=== PATIENT | female | born 1995 | race Caucasian/White ===

== ENCOUNTER 2022-01-26 13:05 | Observation (INO) | payer MEDICAID ==
[~2022-01-26] VITALS: Ht 154.9 cm; Wt 116.1 kg
[2022-01-26 14:08] LABS: BASOPHILS % (AUTO) 0.3 % (0.0-2.0); EOSINOPHILS # (AUTO) 0.1 K/uL (0-0.4); EOSINOPHILS % (AUTO) 0.6 % (0.0-4.0); HEMATOCRIT 37.9 % (36-48); HEMOGLOBIN 12.3 g/dL (12.0-16.0); LYMPHOCYTES # (AUTO) 1.5 K/uL (2.5-16.5); LYMPHOCYTES % (AUTO) 11.8 % (20.5-51.1); MEAN CORPUSCULAR HEMOGLOBIN 26 pg (27-31); MEAN CORPUSCULAR HGB CONC 33 g/dL (33-37); MEAN CORPUSCULAR VOLUME 80.4 fL (80-94); MONOCYTES # (AUTO) 0.7 K/uL (0.8-1.0); MONOCYTES % (AUTO) 5.5 % (1.7-9.3); NEUTROPHILS # (AUTO) 10.1 K/uL (1.8-7.7); NEUTROPHILS % (AUTO) 81.8 % (42.2-75.2); PLATELET COUNT (AUTO) 339 K/uL (140-450); RED BLOOD CELL COUNT(AUTO) 4.71 MIL/uL (4.20-5.40); RED CELL DISTRIBUTION WIDTH 14.1 % (11.6-13.7); WHITE BLOOD COUNT (AUTO) 12.3 K/uL (4.8-10.8)
[2022-01-26] MEDS ORDERED: PNV1TABL5 PO (14:24)
[2022-01-26] MEDS ORDERED: FAMO-90 PO (14:24)
[2022-01-26] MEDS ORDERED: DOXY1TAB6 PO (14:24)
[2022-01-26 14:30] VITALS: BP 115/69
[2022-01-26 14:30] LABS: PROTHROMBIN TIME 9.2 secs (10.8-13.4)
[2022-01-26 14:40] LABS: ALBUMIN 2.5 g/dL (3.4-5.0); ANION GAP 15.6 (8-16); CARBON DIOXIDE 20.8 mmol/L (21-32); CREATININE 0.5 mg/dL (0.6-1.3); POTASSIUM 3.4 mmol/L (3.5-5.1); TOTAL BILIRUBIN 0.3 mg/dL (0.0-1.0)
[2022-01-26] MEDS: LACTATED RINGERS 1,000 ML IV SCH ×2 (15:04→16:56)
[2022-01-26] MEDS ORDERED: METOCLOPRAMIDE 10 MG/2 ML INJ VIAL IVP PRN (17:15)
[2022-01-26] MEDS ORDERED: ACETAMINOPHEN 325 MG TAB PO PRN (17:15)
[2022-01-26] MEDS ORDERED: ONDANSETRON 4 MG/2 ML VIAL IVP PRN (17:15)
[2022-01-26 18:51] LABS: BILIRUBIN,URINE 1+ (NEGATIVE); BLOOD, URINE TRACE-I (NEGATIVE); COLOR,URINE YELLOW (YELLOW); LEUKOCYTE ESTERASE ,URINE 1+ (NEGATIVE); NITRITE, URINE NEGATIVE (NEGATIVE); UGLUCOSE NEGATIVE (NEGATIVE)
[2022-01-26 19:10] LABS: APPEARANCE,URINE HAZY (CLEAR)
[2022-01-26] MEDS ORDERED: NACL 0.9% 1,000 ML IV SCH (19:25)
[2022-01-26] MEDS ORDERED: cefTRIAXone 1,000 MG VIAL ONE (20:03)
[2022-01-26 22:13] LABS: RBC,URINE 0-5 /HPF (0-5)
== END 2022-01-26 22:05 | disposition home or self-care (01) ==
LOC: MLD 13:05
PROVIDERS: ADMIT Obstetrics & Gynecology; ATTEND Obstetrics & Gynecology
DX: O99.612 Diseases of the digestive system complicating pregnancy, second trimester (principal); Z20.822 Contact with and (suspected) exposure to COVID-19; K92.0 Hematemesis; O99.282 Endocrine, nutritional and metabolic diseases complicating pregnancy, second trimester; E03.9 Hypothyroidism, unspecified; O99.342 Other mental disorders complicating pregnancy, second trimester; F41.9 Anxiety disorder, unspecified; Z3A.24 24 weeks gestation of pregnancy
CPT/HCPCS: 36415; 59025; 80053; 81001; 82150; 83690; 85025; 85379; 85384; 85610; 85730; 87086; 87426; 96361; 96365; 96375; G0378; J0696; J2405; J2765; J7060; J7120

== ENCOUNTER 2022-01-28 21:25 | Emergency (ER) | payer MEDICAID ==
[~2022-01-28] VITALS: Ht 154.9 cm; Wt 116.1 kg
[~2022-01-28 21:25] MED LIST: DOXY1TAB6 PO; FAMO-90 PO; PNV1TABL5 PO
[2022-01-28 21:31] VITALS: BP 110/76
--- NOTE | 2022-01-28 22:05 | NUR ---
Blood for labwork drawn from left arm per [employer] hemmer. Patient tolerated well.
--- NOTE | 2022-01-28 22:15 | NUR ---
AMBULATED TO BED #4
[2022-01-28 22:26] LABS: BASOPHILS # (AUTO) 0.1 K/uL (0.00-0.22); BASOPHILS % (AUTO) 0.6 % (0.0-2.0); EOSINOPHILS # (AUTO) 0.1 K/uL (0-0.4); EOSINOPHILS % (AUTO) 0.4 % (0.0-4.0); HEMATOCRIT 36.9 % (36-48); LYMPHOCYTES # (AUTO) 2.2 K/uL (2.5-16.5); LYMPHOCYTES % (AUTO) 14.9 % (20.5-51.1); MEAN CORPUSCULAR HEMOGLOBIN 26 pg (27-31); MEAN CORPUSCULAR HGB CONC 33 g/dL (33-37); MEAN CORPUSCULAR VOLUME 80.7 fL (80-94); MONOCYTES % (AUTO) 6.9 % (1.7-9.3); NEUTROPHILS # (AUTO) 11.4 K/uL (1.8-7.7); NEUTROPHILS % (AUTO) 77.2 % (42.2-75.2); PLATELET COUNT (AUTO) 354 K/uL (140-450); RED BLOOD CELL COUNT(AUTO) 4.57 MIL/uL (4.20-5.40); RED CELL DISTRIBUTION WIDTH 14.1 % (11.6-13.7); WHITE BLOOD COUNT (AUTO) 14.7 K/uL (4.8-10.8)
[2022-01-28 22:51] LABS: ALBUMIN 2.7 g/dL (3.4-5.0); ANION GAP 12.1 (8-16); CARBON DIOXIDE 26.3 mmol/L (21-32); CREATININE 0.5 mg/dL (0.6-1.3); POTASSIUM 3.4 mmol/L (3.5-5.1); TOTAL BILIRUBIN 0.2 mg/dL (0.0-1.0)
--- NOTE | 2022-01-28 23:08 | NUR ---
Assumed patient care, here for bloody vomitus, pt is 25weeks . Ed provider at the bedside, blood work in.
[2022-01-28] MEDS ORDERED: FAMOTIDINE 20 MG/2 ML VIAL IVP ONE (23:55)
[2022-01-28] MEDS ORDERED: NACL 0.9% 1,000 ML IV ONE (23:55)
[2022-01-28] MEDS ORDERED: ONDANSETRON 4 MG/2 ML VIAL IVP ONE (23:55)
[2022-01-29 00:15] LABS: PROTHROMBIN TIME 9.1 secs (10.8-13.4)
--- NOTE | 2022-01-29 00:30 | NUR ---
Given report to Ericka DIXON in L&D, VS stable on transport.
[2022-01-29 00:47] VITALS: BP 110/70
[2022-01-29] MEDS ORDERED: DEXT 5% / LACT RING 1,000 ML IV PRN (01:15)
== END 2022-01-29 01:23 | disposition home or self-care (01) ==
LOC: MED 21:25
DX: O21.8 Other vomiting complicating pregnancy (principal); E03.9 Hypothyroidism, unspecified; Z3A.24 24 weeks gestation of pregnancy; Z90.49 Acquired absence of other specified parts of digestive tract; Z88.5 Allergy status to narcotic agent; Z91.018 Allergy to other foods
CPT/HCPCS: 36415; 80053; 81025; 85025; 85610; 96361; 96374; 96375; 99284; J2405; J3490; J7030; 99283

== ENCOUNTER 2022-01-29 01:08 | Observation (INO) | payer MEDICAID ==
[~2022-01-29 01:08] MED LIST changes: +DEXT 5% / LACT RING 1,000 ML IV PRN
[2022-01-29] MEDS ORDERED: ONDANSETRON 4 MG/2 ML VIAL IVP PRN (01:35)
== END 2022-01-29 10:45 | disposition home or self-care (01) ==
LOC: INTOOBSV 01:08 → MLD 01:08
PROVIDERS: ADMIT Obstetrics & Gynecology; ATTEND Obstetrics & Gynecology
DX: O99.612 Diseases of the digestive system complicating pregnancy, second trimester (principal); K92.0 Hematemesis; Z3A.26 26 weeks gestation of pregnancy
CPT/HCPCS: 81000; 96361; 96374; G0378; G0379; J2405

== ENCOUNTER 2022-02-04 20:55 | Inpatient (IN) | payer MEDICAID ==
[~2022-02-04] VITALS: Ht 154.9 cm; Wt 108.9 kg
[~2022-02-04 20:55] MED LIST changes: -DEXT 5% / LACT RING 1,000 ML IV PRN
[2022-02-04] MEDS ORDERED: ONDANSETRON 8 MG in NACL 0.9% 50 ML IVP PRN (21:50)
[2022-02-04 22:04] LABS: BASOPHILS # (AUTO) 0.1 K/uL (0.00-0.22); BASOPHILS % (AUTO) 0.4 % (0.0-2.0); EOSINOPHILS # (AUTO) 0.1 K/uL (0-0.4); EOSINOPHILS % (AUTO) 0.5 % (0.0-4.0); HEMATOCRIT 34.2 % (36-48); HEMOGLOBIN 11.2 g/dL (12.0-16.0); LYMPHOCYTES % (AUTO) 15.7 % (20.5-51.1); MEAN CORPUSCULAR HEMOGLOBIN 26 pg (27-31); MEAN CORPUSCULAR HGB CONC 33 g/dL (33-37); MEAN CORPUSCULAR VOLUME 80.6 fL (80-94); MONOCYTES # (AUTO) 0.7 K/uL (0.8-1.0); MONOCYTES % (AUTO) 5.4 % (1.7-9.3); NEUTROPHILS # (AUTO) 9.7 K/uL (1.8-7.7); PLATELET COUNT (AUTO) 286 K/uL (140-450); RED BLOOD CELL COUNT(AUTO) 4.25 MIL/uL (4.20-5.40); RED CELL DISTRIBUTION WIDTH 14.6 % (11.6-13.7); WHITE BLOOD COUNT (AUTO) 12.5 K/uL (4.8-10.8)
[2022-02-04 22:05] LABS: APPEARANCE,URINE SL CLOUDY (CLEAR); BILIRUBIN,URINE NEGATIVE (NEGATIVE); BLOOD, URINE 2+ (NEGATIVE); COLOR,URINE YELLOW (YELLOW); LEUKOCYTE ESTERASE ,URINE 1+ (NEGATIVE); NITRITE, URINE NEGATIVE (NEGATIVE); UGLUCOSE NEGATIVE (NEGATIVE)
[2022-02-04] MEDS: LACTATED RINGERS 1,000 ML IV SCH (22:15)
[2022-02-04 22:19] LABS: RBC,URINE 0-5 /HPF (0-5); WBC,URINE 20-60 /HPF (0-5)
[2022-02-04] MEDS ORDERED: ONDANSETRON 4 MG/2 ML VIAL IVP PRN (22:20)
[2022-02-04 22:24] LABS: ALBUMIN 2.5 g/dL (3.4-5.0); ANION GAP 13.3 (8-16); CARBON DIOXIDE 22.4 mmol/L (21-32); CREATININE 0.5 mg/dL (0.6-1.3); POTASSIUM 3.7 mmol/L (3.5-5.1); TOTAL BILIRUBIN 0.1 mg/dL (0.0-1.0)
[2022-02-04] MEDS: cephALEXin 500 MG CAP PO SCH (23:55)
[2022-02-04] MEDS ORDERED: ACETAMINOPHEN 325 MG TAB PO PRN (23:55)
[2022-02-04] MEDS ORDERED: ACETAMINOPHEN 325 MG TAB ONE (23:57)
[2022-02-05] MEDS: LACTATED RINGERS 1,000 ML IV SCH ×3 (00:15→14:32)
[2022-02-05] MEDS ORDERED: CEPHALEXIN SUSP. 250 MG/5 ML PO SCH (09:00)
[2022-02-05] MEDS: METOCLOPRAMIDE 10 MG/2 ML INJ VIAL IVP PRN ×3 (10:02→23:36)
[2022-02-05] MEDS: ONDANSETRON 4 MG/2 ML VIAL IVP PRN ×2 (10:02→16:02)
[2022-02-05] MEDS ORDERED: FAMOTIDINE 20 MG/2 ML VIAL IV SCH (12:20)
[2022-02-05] MEDS ORDERED: FAMOTIDINE 20 MG/2 ML VIAL ONE (12:36)
[2022-02-05] MEDS: cephALEXin 500 MG CAP PO SCH (15:14)
[2022-02-05 16:50] LABS: BARBITURATE, URINE NEGATIVE ng/ml (NEG <=200); BENZODIAZEPINE, URINE NEGATIVE ng/mL (NEG <=200); CANNABINOID, URINE POSITIVE ng/mL (NEG <=50); COCAINE, URINE NEGATIVE ng/mL (NEG <=300); OPIATE, URINE NEGATIVE ng/mL (NEG <=2000); PHENCYCLIDINE SCREEN,URINE NEGATIVE ng/mL (NEG <=25)
[2022-02-06] MEDS: LACTATED RINGERS 1,000 ML IV SCH ×3 (00:15→15:49)
[2022-02-06] MEDS: METOCLOPRAMIDE 10 MG/2 ML INJ VIAL IVP PRN (06:46)
[2022-02-06] MEDS: cephALEXin 500 MG CAP PO SCH ×2 (08:32→17:00)
--- NOTE | 2022-02-06 09:34 | NUR ---
PATIENT HAS BEEN SCREENED AND CATEGORIZED LOW NUTRITION RISK. PATIENT WILL BE SEEN WITHIN 7 DAYS OF ADMISSION. 02/05/22-02/11/[address]
[2022-02-06] MEDS: METOCLOPRAMIDE 10 MG/2 ML INJ VIAL IVP SCH ×2 (12:28→17:56)
[2022-02-06] MEDS: ONDANSETRON 4 MG/2 ML VIAL IVP SCH ×2 (12:29→17:56)
[2022-02-06] MEDS ORDERED: AMITRIPTYLINE 10 MG TAB PO SCH (21:00)
[2022-02-06] MEDS: PANTOPRAZOLE 40 MG INJ VIAL IVP SCH (21:06)
[2022-02-07] MEDS: ONDANSETRON 4 MG/2 ML VIAL IVP SCH ×4 (00:01→18:06)
[2022-02-07] MEDS: METOCLOPRAMIDE 10 MG/2 ML INJ VIAL IVP SCH ×4 (06:01→18:05)
[2022-02-07] MEDS: LACTATED RINGERS 1,000 ML IV SCH (08:13)
[2022-02-07] MEDS: PANTOPRAZOLE 40 MG INJ VIAL IVP SCH (08:53)
[2022-02-07] MEDS: cephALEXin 500 MG CAP PO SCH ×2 (08:53→18:07)
[2022-02-07] MEDS ORDERED: diphenhydrAMINE 50 MG/ML VIAL ONE (12:25)
[2022-02-07] MEDS ORDERED: DIAZEPAM PFS 10 MG/2 ML SYR ONE (12:25)
[2022-02-07] MEDS ORDERED: fentaNYL citrate 0.05 MG/ML VIAL ONE (12:25)
[2022-02-07] MEDS ORDERED: MIDAZOLAM 5 MG/5 ML VIAL ONE (12:26)
[2022-02-07] MEDS ORDERED: fentaNYL citrate 0.05 MG/ML VIAL IVP ONE (14:35)
[2022-02-07] MEDS ORDERED: MIDAZOLAM 2 MG/2 ML VIAL IVP ONE (14:35)
== END 2022-02-07 19:00 | disposition home or self-care (01) | DRG 566 ==
LOC: MFCC 20:55 → OBSVTOIN 02-06 16:52
PROVIDERS: ADMIT Obstetrics & Gynecology; ATTEND Obstetrics & Gynecology
PROC: 0DJ08ZZ Inspection of Upper Intestinal Tract, Via Natural or Artificial Opening Endoscopic (ICD-10-PCS; principal; 2022-02-07 12:30)
DX: O21.2 Late vomiting of pregnancy (principal); K92.0 Hematemesis; O23.42 Unspecified infection of urinary tract in pregnancy, second trimester; O99.322 Drug use complicating pregnancy, second trimester; O99.891 Other specified diseases and conditions complicating pregnancy; O99.282 Endocrine, nutritional and metabolic diseases complicating pregnancy, second trimester; O99.212 Obesity complicating pregnancy, second trimester; E03.9 Hypothyroidism, unspecified; F15.90 Other stimulant use, unspecified, uncomplicated; N39.0 Urinary tract infection, site not specified; Z20.822 Contact with and (suspected) exposure to COVID-19; K59.00 Constipation, unspecified; Z3A.25 25 weeks gestation of pregnancy; Z90.49 Acquired absence of other specified parts of digestive tract; Z88.5 Allergy status to narcotic agent; Z88.8 Allergy status to other drugs, medicaments and biological substances; Z91.018 Allergy to other foods; Z79.899 Other long term (current) drug therapy
CPT/HCPCS: 43235; G0378; 36415; 76705; 80053; 80305; 81001; 82150; 83690; 85025; 87086; C9113; G0480; J1200; J2250; J2405; J2765; J3010; J3360; J3490; J7030; Q0092

== ENCOUNTER 2022-03-24 16:40 | Observation (INO) | payer MEDICAID, OTHER ==
[~2022-03-24] VITALS: Ht 154.9 cm; Wt 113.4 kg
[~2022-03-24 16:40] MED LIST changes: -FAMO-90 PO
[2022-03-24 17:39] VITALS: BP 120/70
[2022-03-24 18:35] LABS: BASOPHILS # (AUTO) 0.1 K/uL (0.00-0.22); BASOPHILS % (AUTO) 0.6 % (0.0-2.0); EOSINOPHILS % (AUTO) 0.4 % (0.0-4.0); HEMATOCRIT 33.3 % (36-48); LYMPHOCYTES # (AUTO) 1.6 K/uL (2.5-16.5); LYMPHOCYTES % (AUTO) 13.7 % (20.5-51.1); MEAN CORPUSCULAR HEMOGLOBIN 26 pg (27-31); MEAN CORPUSCULAR HGB CONC 33 g/dL (33-37); MONOCYTES # (AUTO) 0.5 K/uL (0.8-1.0); MONOCYTES % (AUTO) 4.5 % (1.7-9.3); NEUTROPHILS # (AUTO) 9.4 K/uL (1.8-7.7); NEUTROPHILS % (AUTO) 80.8 % (42.2-75.2); PLATELET COUNT (AUTO) 317 K/uL (140-450); RED BLOOD CELL COUNT(AUTO) 4.21 MIL/uL (4.20-5.40); WHITE BLOOD COUNT (AUTO) 11.6 K/uL (4.8-10.8)
[2022-03-24 18:58] LABS: ALBUMIN 2.1 g/dL (3.4-5.0); ANION GAP 15.4 (8-16); CARBON DIOXIDE 22.3 mmol/L (21-32); CREATININE 0.6 mg/dL (0.6-1.3); POTASSIUM 3.7 mmol/L (3.5-5.1); TOTAL BILIRUBIN 0.2 mg/dL (0.0-1.0); URIC ACID 4.4 mg/dL (2.6-7.2)
[2022-03-24] MEDS ORDERED: METOCLOPRAMIDE 10 MG TAB PO PRN (19:00)
[2022-03-24] MEDS ORDERED: ONDANSETRON 4 MG TAB PO PRN (19:00)
[2022-03-24 19:28] LABS: BILIRUBIN,URINE 1+ (NEGATIVE); BLOOD, URINE TRACE-I (NEGATIVE); COLOR,URINE YELLOW (YELLOW); LEUKOCYTE ESTERASE ,URINE 1+ (NEGATIVE); NITRITE, URINE NEGATIVE (NEGATIVE); UGLUCOSE NEGATIVE (NEGATIVE)
[2022-03-24 19:43] LABS: APPEARANCE,URINE HAZY (CLEAR)
[2022-03-24 19:48] VITALS: BP 109/67
[2022-03-24 20:17] LABS: ALBUMIN 2.1 g/dL (3.4-5.0); CARBON DIOXIDE 22.3 mmol/L (21-32); CREATININE 0.5 mg/dL (0.6-1.3); TOTAL BILIRUBIN 0.2 mg/dL (0.0-1.0)
[2022-03-24] MEDS: BETAMETH ACET/BETAMETH NA PH 30 MG/5 ML VIAL IM SCH (20:34)
[2022-03-24] MEDS: LACTATED RINGERS 500 ML IV SCH (20:43)
[2022-03-24 20:50] LABS: ANION GAP 14.2 (8-16); POTASSIUM 3.5 mmol/L (3.5-5.1)
[2022-03-24 21:47] LABS: PROTHROMBIN TIME 9.2 secs (10.8-13.4)
[2022-03-24 23:23] LABS: URINE TOTAL PROTEIN 84.8 mg/dL (0-12)
[2022-03-25] MEDS: LACTATED RINGERS 500 ML IV SCH ×6 (00:30→22:41)
[2022-03-25] MEDS: ACETAMINOPHEN 325 MG TAB PO PRN ×2 (07:56→22:46)
--- NOTE | 2022-03-25 09:07 | NUR ---
PATIENT HAS BEEN SCREENED AND CATEGORIZED LOW NUTRITION RISK. PATIENT WILL BE SEEN WITHIN 7 DAYS OF ADMISSION. 03/31/[address]
[2022-03-25] MEDS ORDERED: BETAMETH ACET/BETAMETH NA PH 30 MG/5 ML VIAL IM ONE (20:58)
[2022-03-25] MEDS: BETAMETH ACET/BETAMETH NA PH 30 MG/5 ML VIAL IM SCH (21:04)
[2022-03-26] MEDS: LACTATED RINGERS 500 ML IV SCH ×6 (02:37→23:48)
[2022-03-26] MEDS: ACETAMINOPHEN 325 MG TAB PO PRN ×2 (05:29→18:56)
[2022-03-27] MEDS: LACTATED RINGERS 500 ML IV SCH ×2 (07:29→11:59)
== END 2022-03-27 14:47 | disposition home or self-care (01) ==
LOC: MLD 16:40
PROVIDERS: ADMIT Obstetrics & Gynecology; ATTEND Obstetrics & Gynecology
DX: O14.93 Unspecified pre-eclampsia, third trimester (principal); Z20.822 Contact with and (suspected) exposure to COVID-19; O99.283 Endocrine, nutritional and metabolic diseases complicating pregnancy, third trimester; E03.9 Hypothyroidism, unspecified; O99.513 Diseases of the respiratory system complicating pregnancy, third trimester; J45.909 Unspecified asthma, uncomplicated; Z3A.32 32 weeks gestation of pregnancy
CPT/HCPCS: 36415; 76805; 76815; 76819; 80053; 81001; 82570; 84550; 85025; 85384; 85610; 85730; 87086; 87426; 96360; 96361; 96372; G0378; J0702; J7120; Q0092

== ENCOUNTER 2022-04-03 01:00 | Observation (INO) | payer OTHER ==
[~2022-04-03] VITALS: Ht 154.9 cm; Wt 131.5 kg
[2022-04-03] MEDS ORDERED: ONDA-188 SL (02:24)
[2022-04-03] MEDS ORDERED: TRA200 PO (02:24)
[2022-04-03] MEDS ORDERED: METO-485 PO (02:24)
[2022-04-03 02:33] VITALS: BP 150/76
== END 2022-04-03 02:50 | disposition home or self-care (01) ==
LOC: MLD 01:00
PROVIDERS: ADMIT Obstetrics & Gynecology; ATTEND Obstetrics & Gynecology
DX: O26.893 Other specified pregnancy related conditions, third trimester (principal); Z20.822 Contact with and (suspected) exposure to COVID-19; R55 Syncope and collapse; R51.9 Headache, unspecified; Z3A.37 37 weeks gestation of pregnancy
CPT/HCPCS: 59025; 81000; 87426; G0378

== ENCOUNTER 2022-04-14 15:05 | Observation (INO) | payer OTHER ==
[~2022-04-14] VITALS: Ht 154.9 cm; Wt 131.5 kg
[~2022-04-14 15:05] MED LIST changes: +METO-485 PO; +ONDA-188 SL; +TRA200 PO
[2022-04-14] MEDS ORDERED: PREN-537 PO ×2 (16:13)
[2022-04-14] MEDS ORDERED: NIFEdipine 10 MG CAPLF PO SCH (18:05)
[2022-04-14] MEDS ORDERED: ACETAMINOPHEN 325 MG TAB PO SCH (18:05)
[2022-04-14 18:46] LABS: BASOPHILS % (AUTO) 0.2 % (0.0-2.0); EOSINOPHILS % (AUTO) 0.2 % (0.0-4.0); HEMATOCRIT 33.3 % (36-48); HEMOGLOBIN 10.8 g/dL (12.0-16.0); LYMPHOCYTES # (AUTO) 2.1 K/uL (2.5-16.5); LYMPHOCYTES % (AUTO) 15.2 % (20.5-51.1); MEAN CORPUSCULAR HEMOGLOBIN 26 pg (27-31); MEAN CORPUSCULAR HGB CONC 32 g/dL (33-37); MEAN CORPUSCULAR VOLUME 80.1 fL (80-94); MONOCYTES # (AUTO) 0.9 K/uL (0.8-1.0); MONOCYTES % (AUTO) 6.9 % (1.7-9.3); NEUTROPHILS # (AUTO) 10.5 K/uL (1.8-7.7); NEUTROPHILS % (AUTO) 77.5 % (42.2-75.2); PLATELET COUNT (AUTO) 294 K/uL (140-450); RED BLOOD CELL COUNT(AUTO) 4.16 MIL/uL (4.20-5.40); RED CELL DISTRIBUTION WIDTH 14.6 % (11.6-13.7); WHITE BLOOD COUNT (AUTO) 13.6 K/uL (4.8-10.8)
[2022-04-14 18:55] LABS: APPEARANCE,URINE CLEAR (CLEAR); BILIRUBIN,URINE NEGATIVE (NEGATIVE); BLOOD, URINE NEGATIVE (NEGATIVE); COLOR,URINE YELLOW (YELLOW); LEUKOCYTE ESTERASE ,URINE 2+ (NEGATIVE); NITRITE, URINE NEGATIVE (NEGATIVE); UGLUCOSE NEGATIVE (NEGATIVE)
[2022-04-14 19:08] LABS: PROTHROMBIN TIME 8.7 secs (10.8-13.4)
[2022-04-14 19:10] LABS: ALBUMIN 2.2 g/dL (3.4-5.0); ANION GAP 13.8 (8-16); CARBON DIOXIDE 22.1 mmol/L (21-32); CREATININE 0.6 mg/dL (0.6-1.3); POTASSIUM 3.9 mmol/L (3.5-5.1); TOTAL BILIRUBIN 0.1 mg/dL (0.0-1.0)
[2022-04-14 19:10] LABS: OTHER CASTS, URINE None Seen /LPF (None Seen); RBC,URINE 0-5 /HPF (0-5)
[2022-04-14 19:23] LABS: URINE TOTAL PROTEIN 33.6 mg/dL (0-12)
== END 2022-04-14 20:20 | disposition home or self-care (01) ==
LOC: MLD 15:05
PROVIDERS: ADMIT Obstetrics & Gynecology; ATTEND Obstetrics & Gynecology
DX: O99.891 Other specified diseases and conditions complicating pregnancy (principal); M54.9 Dorsalgia, unspecified; Z20.822 Contact with and (suspected) exposure to COVID-19; Z3A.40 40 weeks gestation of pregnancy
CPT/HCPCS: 36415; 80053; 81001; 82570; 84550; 85025; 85384; 85610; 85730; 87086; 87426; G0378

== ENCOUNTER 2022-10-17 20:54 | Emergency (ER) | payer OTHER ==
[~2022-10-17] VITALS: Ht 162.6 cm; Wt 120.7 kg
[~2022-10-17 20:54] MED LIST changes: +ASPI-1822 PO; +PREN-537 PO
[2022-10-17 21:22] VITALS: BP 129/80
[2022-10-17] MEDS ORDERED: CEPH-588 PO (22:29)
[2022-10-17] MEDS ORDERED: IBUP-2213 PO (22:29)
[2022-10-17] MEDS ORDERED: LIDO4CRE18 TP (22:29)
[2022-10-17 23:08] VITALS: BP 129/80
--- NOTE | 2022-10-17 23:08 | NUR ---
"Patient discharged with v/s stable. Written and verbal after care instructions given and explained. Patient alert, oriented and verbalized understanding of instructions. Ambulatory with steady gait. All questions addressed prior to discharge. ID band removed. Patient advised to follow up with PMD. Rx of CEPHALEXIN, IBUPROFEN, AND LIDOCAINE (ANECREAM) given. Patient educated on indication of medication including possible reaction and side effects. Opportunity to ask questions provided and answered. DX: RASH,ADULT | GENITAL WARTS"
== END 2022-10-17 23:08 | disposition home or self-care (01) ==
LOC: MED 20:54
DX: R21 Rash and other nonspecific skin eruption (principal); E03.9 Hypothyroidism, unspecified; Z88.5 Allergy status to narcotic agent; Z88.8 Allergy status to other drugs, medicaments and biological substances; Z79.899 Other long term (current) drug therapy
CPT/HCPCS: 99283

== ENCOUNTER 2022-10-27 06:11 | Emergency (ER) | payer OTHER ==
[~2022-10-27] VITALS: Ht 154.9 cm; Wt 121.1 kg
[~2022-10-27 06:11] MED LIST changes: +CEPH-588 PO; +IBUP-2213 PO; +LIDO4CRE18 TP
[2022-10-27 06:24] VITALS: BP 125/79
--- NOTE | 2022-10-27 06:44 | NUR ---
c/o right side jaw pain and headache 10/10 x 4 days. per pt, hx hypothyroidism, gallbladder surgery, allergy to codeine morphine, pumpkin
--- NOTE | 2022-10-27 06:50 | NUR ---
Dr. Goldman by bedside evaluating patient
[2022-10-27] MEDS ORDERED: PENI500T20 PO (06:57)
[2022-10-27] MEDS ORDERED: NAPR-1704 PO (06:57)
[2022-10-27] MEDS ORDERED: ACET-8905 PO (06:57)
[2022-10-27 07:03] VITALS: BP 125/79
--- NOTE | 2022-10-27 07:04 | NUR ---
Patient discharged with v/s stable. Written and verbal after care instructions given and explained. New rx of norco, naprosyn, and penicillin. Patient verbalized understanding. Ambulatory with steady gait. All questions addressed prior to discharge. Advised to follow up with PMD.
== END 2022-10-27 07:03 | disposition home or self-care (01) ==
LOC: MED 06:11
DX: K08.89 Other specified disorders of teeth and supporting structures (principal); E03.9 Hypothyroidism, unspecified; Z90.49 Acquired absence of other specified parts of digestive tract; Z79.899 Other long term (current) drug therapy; Z79.2 Long term (current) use of antibiotics; Z79.891 Long term (current) use of opiate analgesic; Z79.1 Long term (current) use of non-steroidal anti-inflammatories (NSAID); Z88.5 Allergy status to narcotic agent; Z91.018 Allergy to other foods
CPT/HCPCS: 99283

== ENCOUNTER 2022-10-27 21:47 | Emergency (ER) | payer OTHER ==
[~2022-10-27] VITALS: Ht 154.9 cm; Wt 121.1 kg
[~2022-10-27 21:47] MED LIST changes: +ACET-8905 PO; +NAPR-1704 PO; +PENI500T20 PO
[2022-10-27 21:58] VITALS: BP 137/82
[2022-10-28] MEDS ORDERED: fentaNYL citrate 0.05 MG/ML VIAL IM ONE (01:35)
[2022-10-28] MEDS ORDERED: KETOROLAC 30 MG/ML VIAL IM ONE (01:35)
[2022-10-28 03:03] VITALS: BP 128/82
== END 2022-10-28 03:03 | disposition home or self-care (01) ==
LOC: MED 21:47
DX: S02.5XXD Fracture of tooth (traumatic), subsequent encounter for fracture with routine healing (principal); Z86.39 Personal history of other endocrine, nutritional and metabolic disease; Z79.899 Other long term (current) drug therapy; Z79.2 Long term (current) use of antibiotics; Z79.891 Long term (current) use of opiate analgesic; Z79.1 Long term (current) use of non-steroidal anti-inflammatories (NSAID); Z79.82 Long term (current) use of aspirin; Z88.5 Allergy status to narcotic agent; Z91.018 Allergy to other foods; X58.XXXD Exposure to other specified factors, subsequent encounter
CPT/HCPCS: 96372; 99284; J1885; J3010

== ENCOUNTER 2022-11-26 10:52 | Emergency (ER) | payer OTHER ==
[~2022-11-26] VITALS: Ht 154.9 cm; Wt 113.4 kg
[2022-11-26 10:57] VITALS: BP 136/85
--- NOTE | 2022-11-26 11:07 | NUR ---
pt ambulatory to bed 12
[2022-11-26] MEDS ORDERED: ONDANSETRON 4 MG/2 ML VIAL IVP ONE (11:30)
[2022-11-26] MEDS ORDERED: KETOROLAC 15 MG/ML VIAL IVP ONE (11:30)
[2022-11-26] MEDS ORDERED: NACL 0.9% 1,000 ML IV ONE (11:30)
[2022-11-26 11:59] LABS: BASOPHILS # (AUTO) 0.1 K/uL (0.00-0.22); BASOPHILS % (AUTO) 0.9 % (0.0-2.0); EOSINOPHILS # (AUTO) 0.1 K/uL (0-0.4); EOSINOPHILS % (AUTO) 1.6 % (0.0-4.0); HEMATOCRIT 41.7 % (36-48); HEMOGLOBIN 13.3 g/dL (12.0-16.0); LYMPHOCYTES # (AUTO) 1.8 K/uL (2.5-16.5); LYMPHOCYTES % (AUTO) 31.3 % (20.5-51.1); MEAN CORPUSCULAR HEMOGLOBIN 25 pg (27-31); MEAN CORPUSCULAR HGB CONC 32 g/dL (33-37); MEAN CORPUSCULAR VOLUME 76.6 fL (80-94); MONOCYTES # (AUTO) 0.6 K/uL (0.8-1.0); NEUTROPHILS # (AUTO) 3.1 K/uL (1.8-7.7); NEUTROPHILS % (AUTO) 56.2 % (42.2-75.2); PLATELET COUNT (AUTO) 294 K/uL (140-450); RED BLOOD CELL COUNT(AUTO) 5.45 MIL/uL (4.20-5.40); RED CELL DISTRIBUTION WIDTH 15.2 % (11.6-13.7); WHITE BLOOD COUNT (AUTO) 5.6 K/uL (4.8-10.8)
--- NOTE | 2022-11-26 12:06 | NUR ---
X-RAY AT BEDSIDE.
[2022-11-26 12:34] LABS: ALBUMIN 3.4 g/dL (3.4-5.0); ANION GAP 13.4 (8-16); CARBON DIOXIDE 27.8 mmol/L (21-32); CREATININE 0.8 mg/dL (0.6-1.3); POTASSIUM 3.2 mmol/L (3.5-5.1); TOTAL BILIRUBIN 0.2 mg/dL (0.0-1.0)
[2022-11-26] MEDS ORDERED: MUC600 PO (13:19)
--- NOTE | 2022-11-26 13:47 | NUR ---
Patient discharged with v/s stable. Written and verbal after care instructions given and explained. Patient alert, oriented and verbalized understanding of instructions. Ambulatory with steady gait. All questions addressed prior to discharge. ID band removed. Patient advised to follow up with PMD. Rx of mucinex given. Patient educated on indication of medication including possible reaction and side effects. Opportunity to ask questions provided and answered.
== END 2022-11-26 12:44 | disposition home or self-care (01) ==
LOC: MED 10:52
DX: B34.9 Viral infection, unspecified (principal); Z20.822 Contact with and (suspected) exposure to COVID-19; J45.909 Unspecified asthma, uncomplicated; E03.9 Hypothyroidism, unspecified; Z88.5 Allergy status to narcotic agent; Z79.1 Long term (current) use of non-steroidal anti-inflammatories (NSAID); Z91.018 Allergy to other foods; Z79.899 Other long term (current) drug therapy; Z90.49 Acquired absence of other specified parts of digestive tract
CPT/HCPCS: 36415; 71045; 80053; 83690; 85025; 87426; 87804; 96374; 96375; 99284; J1885; J2405; J7030; Q0092; 96361

== ENCOUNTER 2023-09-03 14:18 | Emergency (ER) | payer OTHER ==
[~2023-09-03] VITALS: Ht 154.9 cm; Wt 117.0 kg
[~2023-09-03 14:18] MED LIST changes: +MUC600 PO
[2023-09-03 14:29] VITALS: BP 125/74; PULSE 82; RESP 19; TEMP 98.1; O2SAT 98
[2023-09-03 15:07] LABS: FLU A ANTIGEN negative (NEGATIVE); FLU B ANTIGEN negative (NEGATIVE)
[2023-09-03 15:13] LABS: BASOPHILS # (AUTO) 0.1 K/uL (0.00-0.22); BASOPHILS % (AUTO) 0.9 % (0.0-2.0); EOSINOPHILS # (AUTO) 0.1 K/uL (0-0.4); EOSINOPHILS % (AUTO) 0.9 % (0.0-4.0); HEMATOCRIT 38.9 % (36-48); HEMOGLOBIN 12.8 g/dL (12.0-16.0); LYMPHOCYTES # (AUTO) 2.4 K/uL (2.5-16.5); LYMPHOCYTES % (AUTO) 21.5 % (20.5-51.1); MEAN CORPUSCULAR HEMOGLOBIN 25 pg (27-31); MEAN CORPUSCULAR HGB CONC 33 g/dL (33-37); MEAN CORPUSCULAR VOLUME 76.2 fL (80-94); MONOCYTES # (AUTO) 0.7 K/uL (0.8-1.0); NEUTROPHILS # (AUTO) 7.8 K/uL (1.8-7.7); NEUTROPHILS % (AUTO) 70.7 % (42.2-75.2); PLATELET COUNT (AUTO) 322 K/uL (140-450); RED CELL DISTRIBUTION WIDTH 15.6 % (11.6-13.7)
[2023-09-03 15:40] LABS: ALBUMIN 3.3 g/dL (3.4-5.0); ANION GAP 10.6 (8-16); CALCIUM 8.7 mg/dL (8.5-10.1); CARBON DIOXIDE 30.3 mmol/L (21-32); CREATININE 0.8 mg/dL (0.6-1.3); POTASSIUM 3.9 mmol/L (3.5-5.1); THYROID STIMULATING HORMONE 2.57 uIU/mL (0.34-3.74); TOTAL BILIRUBIN 0.4 mg/dL (0.0-1.0); TOTAL PROTEIN, SERUM 8.2 g/dL (6.4-8.2)
== END 2023-09-03 16:08 | disposition home or self-care (01) ==
LOC: MED 14:18
DX: J30.9 Allergic rhinitis, unspecified (principal); Z20.822 Contact with and (suspected) exposure to COVID-19; R09.82 Postnasal drip; E03.9 Hypothyroidism, unspecified; Z88.8 Allergy status to other drugs, medicaments and biological substances; Z88.5 Allergy status to narcotic agent; Z79.899 Other long term (current) drug therapy
CPT/HCPCS: 36415; 80053; 84443; 85025; 99283

== ENCOUNTER 2023-09-20 18:15 | Emergency (ER) | payer OTHER ==
[~2023-09-20] VITALS: Ht 154.9 cm; Wt 116.6 kg
[2023-09-20 18:25] VITALS: BP 135/86; PULSE 81; RESP 20; TEMP 97.7; O2SAT 99
[2023-09-20 20:34] LABS: BASOPHILS # (AUTO) 0.1 K/uL (0.00-0.22); EOSINOPHILS # (AUTO) 0.1 K/uL (0-0.4); HEMATOCRIT 38.3 % (36-48); HEMOGLOBIN 12.7 g/dL (12.0-16.0); LYMPHOCYTES # (AUTO) 2.2 K/uL (2.5-16.5); LYMPHOCYTES % (AUTO) 24.8 % (20.5-51.1); MEAN CORPUSCULAR HEMOGLOBIN 25 pg (27-31); MEAN CORPUSCULAR HGB CONC 33 g/dL (33-37); MEAN CORPUSCULAR VOLUME 76.4 fL (80-94); MONOCYTES # (AUTO) 0.5 K/uL (0.8-1.0); MONOCYTES % (AUTO) 5.5 % (1.7-9.3); NEUTROPHILS % (AUTO) 67.7 % (42.2-75.2); PLATELET COUNT (AUTO) 269 K/uL (140-450); RED BLOOD CELL COUNT(AUTO) 5.02 MIL/uL (4.20-5.40); RED CELL DISTRIBUTION WIDTH 15.8 % (11.6-13.7); WHITE BLOOD COUNT (AUTO) 8.9 K/uL (4.8-10.8)
[2023-09-20 20:46] LABS: CALCIUM 8.4 mg/dL (8.5-10.1); CARBON DIOXIDE 27.7 mmol/L (21-32); CREATININE 0.8 mg/dL (0.6-1.3); POTASSIUM 3.7 mmol/L (3.5-5.1)
[2023-09-20 21:01] LABS: FLU A ANTIGEN negative (NEGATIVE); FLU B ANTIGEN NEGATIVE (NEGATIVE)
== END 2023-09-20 21:33 | disposition home or self-care (01) ==
LOC: MED 18:15
DX: R07.9 Chest pain, unspecified (principal); R06.02 Shortness of breath; Z20.822 Contact with and (suspected) exposure to COVID-19; R20.0 Anesthesia of skin; R11.0 Nausea; J45.909 Unspecified asthma, uncomplicated; Z86.39 Personal history of other endocrine, nutritional and metabolic disease; Z79.899 Other long term (current) drug therapy; Z79.82 Long term (current) use of aspirin; Z79.2 Long term (current) use of antibiotics; Z79.1 Long term (current) use of non-steroidal anti-inflammatories (NSAID); Z88.5 Allergy status to narcotic agent; Z91.018 Allergy to other foods
CPT/HCPCS: 36415; 71045; 80048; 81025; 84484; 85025; 93005; 99285

== ENCOUNTER 2023-12-09 15:42 | Emergency (ER) | payer OTHER ==
[~2023-12-09] VITALS: Ht 154.9 cm; Wt 112.7 kg
[2023-12-09 16:04] VITALS: BP 114/72; PULSE 83; RESP 18; TEMP 97.8; O2SAT 98
[2023-12-09] MEDS ORDERED: IBUPROFEN 600 MG TAB PO ONE (16:45)
[2023-12-09 18:16] VITALS: BP 134/65; PULSE 79; RESP 19; TEMP 98.2; O2SAT 99
== END 2023-12-09 18:16 | disposition home or self-care (01) ==
LOC: MED 15:42
DX: M75.21 Bicipital tendinitis, right shoulder (principal); M65.4 Radial styloid tenosynovitis [de Quervain]; J45.909 Unspecified asthma, uncomplicated; Z79.1 Long term (current) use of non-steroidal anti-inflammatories (NSAID); Z88.5 Allergy status to narcotic agent; Z88.8 Allergy status to other drugs, medicaments and biological substances; Z79.899 Other long term (current) drug therapy
CPT/HCPCS: 99283

== ENCOUNTER 2024-01-09 18:20 | Emergency (ER) | payer OTHER ==
[~2024-01-09] VITALS: Ht 154.9 cm; Wt 106.6 kg
[2024-01-09 18:35] VITALS: BP 116/73; PULSE 82; RESP 19; TEMP 98.5; O2SAT 97
[2024-01-09] MEDS ORDERED: IBUP-1842 PO (19:46)
[2024-01-09] MEDS: IBUPROFEN 600 MG TAB PO ONE (19:54)
== END 2024-01-09 19:53 | disposition home or self-care (01) ==
LOC: MED 18:20
DX: S83.8X1A Sprain of other specified parts of right knee, initial encounter (principal); J45.909 Unspecified asthma, uncomplicated; E03.9 Hypothyroidism, unspecified; Z79.1 Long term (current) use of non-steroidal anti-inflammatories (NSAID); Z88.8 Allergy status to other drugs, medicaments and biological substances; Z79.899 Other long term (current) drug therapy; Z91.018 Allergy to other foods; X58.XXXA Exposure to other specified factors, initial encounter; Y93.89 Activity, other specified; Y92.89 Other specified places as the place of occurrence of the external cause; Y99.8 Other external cause status
CPT/HCPCS: 29505; 99283

== ENCOUNTER 2024-02-16 10:45 | Emergency (ER) | payer OTHER ==
[~2024-02-16] VITALS: Ht 154.9 cm; Wt 106.6 kg
[~2024-02-16 10:45] MED LIST changes: +IBUP-1842 PO
[2024-02-16 11:03] VITALS: BP 107/69; PULSE 83; RESP 18; TEMP 97.3; O2SAT 98
[2024-02-16] MEDS: KETOROLAC 30 MG/ML VIAL IVP ONE (12:53)
[2024-02-16 12:56] LABS: BASOPHILS # (AUTO) 0.1 K/uL (0.00-0.22); BASOPHILS % (AUTO) 0.7 % (0.0-2.0); EOSINOPHILS # (AUTO) 0.1 K/uL (0-0.4); EOSINOPHILS % (AUTO) 0.8 % (0.0-4.0); HEMATOCRIT 41.1 % (36-48); HEMOGLOBIN 13.3 g/dL (12.0-16.0); LYMPHOCYTES # (AUTO) 1.9 K/uL (2.5-16.5); LYMPHOCYTES % (AUTO) 16.1 % (20.5-51.1); MEAN CORPUSCULAR HEMOGLOBIN 26 pg (27-31); MEAN CORPUSCULAR HGB CONC 32 g/dL (33-37); MEAN CORPUSCULAR VOLUME 79.6 fL (80-94); MONOCYTES # (AUTO) 0.7 K/uL (0.8-1.0); MONOCYTES % (AUTO) 5.7 % (1.7-9.3); NEUTROPHILS # (AUTO) 8.8 K/uL (1.8-7.7); NEUTROPHILS % (AUTO) 76.7 % (42.2-75.2); PLATELET COUNT (AUTO) 280 K/uL (140-450); RED BLOOD CELL COUNT(AUTO) 5.16 MIL/uL (4.20-5.40); RED CELL DISTRIBUTION WIDTH 14.1 % (11.6-13.7); WHITE BLOOD COUNT (AUTO) 11.5 K/uL (4.8-10.8)
[2024-02-16 13:07] LABS: ANION GAP 9.7 (8-16); CALCIUM 8.8 mg/dL (8.5-10.1); CARBON DIOXIDE 28.8 mmol/L (21-32); CREATININE 0.7 mg/dL (0.6-1.3); POTASSIUM 4.5 mmol/L (3.5-5.1)
[2024-02-16 13:15] LABS: ALBUMIN 3.5 g/dL (3.4-5.0); BILIRUBIN,DIRECT 0.1 mg/dL (0.0-0.3); TOTAL BILIRUBIN 0.3 mg/dL (0.0-1.0); TOTAL PROTEIN, SERUM 7.5 g/dL (6.4-8.2)
[2024-02-16 13:20] LABS: APPEARANCE,URINE CLOUDY (CLEAR); BILIRUBIN,URINE NEGATIVE (NEGATIVE); BLOOD, URINE NEGATIVE (NEGATIVE); COLOR,URINE YELLOW (YELLOW); LEUKOCYTE ESTERASE ,URINE 1+ (NEGATIVE); NITRITE, URINE NEGATIVE (NEGATIVE); PH,URINE 8.5 (5.0-9.0); PROTEIN,URINE 1+ (NEGATIVE); UGLUCOSE NEGATIVE (NEGATIVE); UROBILINOGEN,URINE 0.2 EU/dL (0.2 - 1)
[2024-02-16 13:33] LABS: BACTERIA,URINE 10-30 (MOD) /HPF (None Seen); RBC,URINE 0-5 /HPF (0-5); SQUAMOUS EPITHELIAL CELL,UR 4-10 (MOD) /LPF (0-3 (FEW))
[2024-02-16] MEDS ORDERED: METR-435 PO (15:02)
[2024-02-16] MEDS ORDERED: CIPR500T4 PO (15:02)
[2024-02-16] MEDS ORDERED: ACET-8905 PO (15:02)
[2024-02-16 15:11] VITALS: BP 108/71; PULSE 77; RESP 16; TEMP 98.1; O2SAT 98
== END 2024-02-16 15:15 | disposition home or self-care (01) ==
LOC: MED 10:45
DX: K52.9 Noninfective gastroenteritis and colitis, unspecified (principal); N39.0 Urinary tract infection, site not specified; J45.909 Unspecified asthma, uncomplicated; F41.9 Anxiety disorder, unspecified; Z86.39 Personal history of other endocrine, nutritional and metabolic disease; Z90.49 Acquired absence of other specified parts of digestive tract; Z79.899 Other long term (current) drug therapy; Z79.82 Long term (current) use of aspirin; Z88.5 Allergy status to narcotic agent; Z91.018 Allergy to other foods
CPT/HCPCS: 36415; 74176; 80048; 80076; 81001; 81025; 83690; 85025; 87086; 96374; 99285; J1885

== ENCOUNTER 2024-02-23 12:30 | Emergency (ER) | payer OTHER ==
[~2024-02-23] VITALS: Ht 154.9 cm; Wt 105.3 kg
[~2024-02-23 12:30] MED LIST changes: +CIPR500T4 PO; +METR-435 PO
[2024-02-23 13:05] VITALS: BP 123/81; PULSE 71; RESP 16; TEMP 97.5; O2SAT 100
[2024-02-23 13:57] LABS: BASOPHILS # (AUTO) 0.1 K/uL (0.00-0.22); BASOPHILS % (AUTO) 0.6 % (0.0-2.0); EOSINOPHILS % (AUTO) 0.4 % (0.0-4.0); HEMATOCRIT 40.5 % (36-48); HEMOGLOBIN 13.1 g/dL (12.0-16.0); LYMPHOCYTES # (AUTO) 1.3 K/uL (2.5-16.5); LYMPHOCYTES % (AUTO) 9.7 % (20.5-51.1); MEAN CORPUSCULAR HEMOGLOBIN 26 pg (27-31); MEAN CORPUSCULAR HGB CONC 32 g/dL (33-37); MEAN CORPUSCULAR VOLUME 78.5 fL (80-94); MONOCYTES # (AUTO) 0.6 K/uL (0.8-1.0); MONOCYTES % (AUTO) 4.3 % (1.7-9.3); NEUTROPHILS # (AUTO) 11.4 K/uL (1.8-7.7); PLATELET COUNT (AUTO) 272 K/uL (140-450); RED BLOOD CELL COUNT(AUTO) 5.15 MIL/uL (4.20-5.40); WHITE BLOOD COUNT (AUTO) 13.4 K/uL (4.8-10.8)
[2024-02-23 14:16] LABS: ANION GAP 12.5 (8-16); CALCIUM 8.8 mg/dL (8.5-10.1); CARBON DIOXIDE 25.1 mmol/L (21-32); CREATININE 0.7 mg/dL (0.6-1.3); POTASSIUM 4.6 mmol/L (3.5-5.1)
[2024-02-23 14:35] LABS: APPEARANCE,URINE CLOUDY (CLEAR); BILIRUBIN,URINE NEGATIVE (NEGATIVE); BLOOD, URINE TRACE-I (NEGATIVE); COLOR,URINE YELLOW (YELLOW); LEUKOCYTE ESTERASE ,URINE 3+ (NEGATIVE); NITRITE, URINE NEGATIVE (NEGATIVE); PH,URINE 6.5 (5.0-9.0); PROTEIN,URINE TRACE (NEGATIVE); UGLUCOSE NEGATIVE (NEGATIVE); UROBILINOGEN,URINE 0.2 EU/dL (0.2 - 1)
[2024-02-23 15:00] LABS: BACTERIA,URINE >30 (MANY) /HPF (None Seen); MUCUS,URINE 1+ /LPF (None Seen); SQUAMOUS EPITHELIAL CELL,UR 4-10 (MOD) /LPF (0-3 (FEW)); WBC,URINE 16-25 (MOD) /HPF (0-5)
[2024-02-23] MEDS ORDERED: IBUP-2213 PO (15:42)
[2024-02-23] MEDS ORDERED: ONDA8TAB87 PO (15:42)
[2024-02-23] MEDS ORDERED: CIPR500T4 PO (15:42)
[2024-02-23] MEDS: KETOROLAC 60 MG/2 ML VIAL IM ONE (15:46)
[2024-02-23 16:23] VITALS: BP 97/60; PULSE 64; RESP 16; TEMP 97.5; O2SAT 100
== END 2024-02-23 16:23 | disposition home or self-care (01) ==
LOC: MED 12:30
DX: N39.0 Urinary tract infection, site not specified (principal); R11.2 Nausea with vomiting, unspecified; J45.909 Unspecified asthma, uncomplicated; Z86.39 Personal history of other endocrine, nutritional and metabolic disease; Z90.49 Acquired absence of other specified parts of digestive tract; Z79.899 Other long term (current) drug therapy; Z79.82 Long term (current) use of aspirin; Z88.5 Allergy status to narcotic agent; Z91.018 Allergy to other foods
CPT/HCPCS: 36415; 80048; 81001; 81025; 83690; 85025; 87086; 96372; 99283; J1885